=== PATIENT | male | born 1945 | race Caucasian/White ===

== ENCOUNTER 2016-11-06 09:22 | Observation (INO) | payer MEDICARE, OTHER ==
[~2016-11-06] VITALS: Ht 172.7 cm; Wt 81.0 kg
[~2016-11-06 09:22] MED LIST: ASPI-973 PO; CALC-1034 PO; CHOL100043 PO; PRAV40TA PO; UBID30CA12 PO; VIT1CAPS8 PO; ZYL100 PO
[2016-11-06 09:31] VITALS: BP 175/82; PULSE 68; RESP 15; O2SAT 98
--- NOTE | 2016-11-06 09:38 | ED.REPORT ---
HPI-Stroke / CVA Nov 06, 2016 ED Provider: Parish Holden MD 71 year old male presents to the ER accompanied by his due to concern for stroke. He states that he experienced an episode of difficulty with word- finding at 08:30 when he attempted to tell his what was happening in the TV show that he was watching at the time. Associated symptoms include right facial numbness, and right arm numbness. Symptoms are currently resolved. Recently he has been having recurrent headaches, and has been feeling fatigued. Patient denies chest pain, and shortness of breath. denies facial droop with symptoms. Nursing Notes Stated Complaint: WAS UNABLE TO TALK/NUMBNESS TO FACE/TINGLING HAND Chief Complaint: Neuro Symptoms/ Deficits Nursing Notes Reviewed: Yes Allergies: Coded Allergies: simvastatin (Verified Allergy, Mild, vertigo, 08/05/16) Scheduled Allopurinol (Allopurinol) 100 Mg Tablet 100 MG PO DAILY (Reported) Aspirin (Aspirin) 81 Mg Tablet 81 MG PO DAILY (Reported) Calcium Carbonate/Vitamin D3 (Calcium 600 + Vit D3 400 Tab) 600 Mg-400 Tablet 1 EACH PO DAILY (Reported) Cholecalciferol (Vitamin D3) (Vitamin D) 1,000 Unit Tablet 2,000 UNIT PO DAILY ( Reported) Pravastatin (Pravastatin) 40 Mg Tablet 40 MG PO DAILY (Reported) Vit C/Vit E/Lutein/Min/[place]-3 (Ocuvite Softgel) 1 Each Capsule 1 EACH PO BID ( Reported) Miscellaneous Medications Ubidecarenone (Coq-10) 30 Mg Capsule 30 MG PO (Reported) General Time Seen by Provider: 09:32 Chief Complaint Numbness, Unable to speak Face right, Arm right Hx Obtained From: Patient, Spouse Arrived By: Walk-in Time last known well 08:30 today Sudden in Onset?: Yes Progression Since Onset: Resolved Associated with: Reports: Headache Context Related History: Denies: Cerebrovascular accident Risk Factors NIH Stroke Scale Level of Consciousness: Alert and responsive (0) Ask Month & Age: Both questions right (0) Open/Close Eyes/Hand Art Professor: Performs both tasks (0) Horizontal EO Movements: None (0) Visual Rey: No visual loss (0) Facial Palsy: Normal symmetry (0) Right Arm Motor Drift (10s): No drift 10 sec (0) Left Arm Motor Drift (10s): No drift 10 sec (0) Right Leg Motor Drift (5s): No drift 5 sec (0) Left Leg Motor Drift (5s): No drift 5 sec (0) Limb Ataxia FNF/Heel-Cueva: No ataxia (0) Sensation (Arms/Legs/Face): No sensory loss (0) Language Aphasia: No aphasia, normal (0) Dysarthria: No dysarthria, normal (0) Extinction/Inattention: No exctinct/inattent (0) NIHSS Score: 0 Time NIHSS Performed: 09:47 Date NIHSS Performed: Nov 06, 2016 )( CVA Risk Stratification Age >60No Diabetes mellitus, No Hypertension, No Prior CVA/TIA, No Smoking Risk factors reviewed Past Medical History Past Medical History Reports: Cancer (Skin) Past Surgical History Reports: Tonsillectomy Smoking History Never Smoker Social History Alcohol Use: "Social" Other Social History: Good social support, Ambulatory Status Independent Review of Systems Constitutional: Denies: Chills, Fever Respiratory: Denies: Shortness of breath Cardiovascular: Denies: Chest pain Neurologic: Reports: Headache, Numbness (Right face, Right Arm), Unable to speak, Denies: Change LOC, Confusion, Dizziness, Focal weakness, Problem walking, Seizure, Shaking, Slurred speech, Syncope, Weakness Complete sys rev & neg: except as marked. Physical Exam Initial Vital Signs Vital Signs (First) Date Time Temp Pulse Resp B/P Pulse Ox O2 Delivery O2 Flow Rate FiO2 11/06/16 09:31 36.5 68 15 175/82 98 Room Air Initial VS: Reviewed Abdomen / GI: Soft, Non-tender, No guarding, No rebound, No distention Extremities: Vascular intact, Neuro intact, No swelling, No tenderness Skin: Warm, Dry, No cyanosis Psychiatric: Mood/affect normal, Behavior normal, Normal thought content General/Constitutional: Awake, Alert, No acute distress, Well developed, Well nourished Head / Eyes: Atraumatic, Normocephalic Neck: Supple, Full range of motion, No swelling, Non-tender, No carotid bruit Respiratory / Chest: Breath sounds NL, Breath sounds = bilat, No respiratory distress, No rales, No rhonchi, No wheezing Cardiovascular: Heart rate NL, Regular rhythm, Heart sounds NL, No gallop, No murmurs, No rubs, Peripheral circulation NL Neurologic: Oriented X3, Speech NL, No motor deficits, No sensory deficits, CN II - XII intact No difficulty word-finding. No facial droop. Sensation intact both sides of face. Right and Left with tongue. Strength 5/5 bilateral upper and lower extremities. See NIH Stroke Scale in the Risk section of this note. Interpretation & Diagnostics Lab Results Interpretation Result Diagram: 11/06/16 0930 11/06/16 0930 Test 11/06/16 09:30 White Blood Count 6.1th/mm3 (3.8-10.1) Red Blood Count 5.20mil/mm3 (4.40-5.80) Hemoglobin 15.2g/dL (13.8-17.2) Hematocrit 45.7% (41.0-50.0) Mean Corpuscular Volume 87.9fL (81-100) Mean Corpuscular Hemoglobin 29.2pg (27.0-35.0) Mean Corpuscular Hemoglobin Concent 33.3% (32.0-37.0) Red Cell Distribution Width 12.6% (12.3-15.4) Platelet Count 153bil/L (150-400) Neutrophils (%) (Auto) 62.9% (40-74) Lymphocytes (%) (Auto) 27.4% (14-46) Monocytes (%) (Auto) 5.7% (4-12) Eosinophils (%) (Auto) 3.4% (0-5) Basophils (%) (Auto) 0.3% (0-3) Prothrombin Time 10.9sec (8.1-12.5) Prothromb Time International Ratio 1.02ratio Activated Partial Thromboplast Time 29.7sec (22.8-33.0) Sodium Level 140mEq/L (134-144) Potassium Level 3.8mEq/L (3.5-5.2) Chloride Level 100mEq/L (97-108) Carbon Dioxide Level 27mmol/L (18-29) Blood Urea Nitrogen 13mg/dL (8-27) Creatinine 0.78mg/dL (0.76-1.27) Estimat Glomerular Filtration Rate 104mL/min (>59) Glucose Level 133mg/dL (60-99) Calcium Level 9.0mg/dL (8.5-10.1) Total Bilirubin 0.5mg/dL (0.0-1.2) Aspartate Amino Transf (AST/SGOT) 26U/L (0-50) Alanine Aminotransferase (ALT/SGPT) 18U/L (0-44) Alkaline Phosphatase 89U/L (25-160) Troponin T < 0.010ug/L (0.0-0.011) Total Protein 7.5g/dL (6.4-8.4) Albumin 4.3g/dL (3.4-5.0) Triglycerides Level 296mg/dL (0-149) Cholesterol Level 160mg/dL (100-199) LDL Cholesterol, Calculated 63.800mg/dL (0-99) VLDL Cholesterol 59.200mg/dL HDL Cholesterol 37mg/dL (>39) Cholesterol/HDL Ratio 4.32 (0.0-4.4) ECG Interpretation ECG Interpretation: Sinus rhythm, rate [address] segment changes No T wave abnormalities No prior ECG available for comparison Time: 10:24 Interpreted by: ED physician CT Head Interpretation IMPRESSION: Multiple bilateral hypodensities as detailed above which could be chronic however, technically age indeterminate in the absence of prior studies. These could represent age indeterminate lacunar infarcts/chronic microvascular ischemic disease. No acute intracranial process. Dictated by: Maximino Lucas M.D. on 11/06/2016 at 10:12 Approved by: Maximino Lucas M.D. on 11/06/2016 at 10:17 Study: Head CT no contrast Interpretation / Wet Read by: Interpret - Radiologist Re-Eval/Medical Decision Med Decision/Clinical Course In summary, the patient is a 70-year-old male presents to the emergency department with one resolved episode of word finding difficulty, inability to form sentences and right arm/face numbness/tingling. Daily emergency department symptoms have completely resolved and full head to toe neurologic examination is completely nonfocal. The patient is afebrile with stable vital signs and in no apparent distress/ speaking fluently. EKG was obtained and interpreted myself as documented above. CT scan of the head was obtained as below: Multiple bilateral hypodensities as detailed above which could be chronic however, technically age indeterminate in the absence of prior studies. These could represent age indeterminate lacunar infarcts/chronic microvascular ischemic disease.= No acute intracranial process. Laboratory studies notable as below: CBC normal Chemistry normal Troponin negative Overall presentation concerning for transient ischemic attack. At this time, no evidence of acute intracranial hemorrhage or mass lesion. Patient afebrile without any findings consistent with meningitis/encephalitis. No seizure-like activity here in the emergency department and reassuring neurologic assessment. Patient discussed with admitting hospitalist and he will be admitted for further workup including MRI, carotid imaging and echocardiogram for risk stratification purposes. Patient transferred in stable condition. Re-Evaluation/Progress : Time of Eval: 09:48 Re-Evaluation/Progress Note: Discussed physical examination findings and need for admission. Updated patient and on the plan of care. Consultation : Referral / Consult Name: Vipin Olvera MD Consulted With: Hospitalist Call Returned at: 10:25 Weblogic Administrator: Agrees with eval, Agrees with plan, Accepts admit Counseled Regarding: Diagnosis, Lab results, Need for admission Patient Discharge & Departure Impression: Primary Impression: TIA (transient ischemic attack) Transient cerebral ischemia type: unspecified Qualified Code: G45.9 - Transient cerebral ischemic attack, unspecified Additional Impressions: Numbness and tingling of right arm Numbness and tingling of right face Word finding difficulty Disposition: ADMITTED TO HOSPITAL Discharge Condition All VS Reviewed: Yes Condition: Stable Referrals: Lino Arango MD (PCP) Josselyn Attestation Portions of this note were transcribed by Bahman Tsai. I, Dr. Holden, personally performed the history, physical exam and medical decision-making; I reviewed and confirmed the accuracy of the information in the transcribed note. Signed by: Josselyn Botello, 11/06/2016 and 12:37 copies to: Lino Arango MD, Beck O MD Nov 06, 2016 09:38 BAHMAN TSAI Nov 06, 2016 09:52
[2016-11-06 10:14] VITALS: BP 150/76; PULSE 67; RESP 15; O2SAT 98
--- NOTE | 2016-11-06 10:17 | DRSVH ---
PROCEDURE: CT BRAIN WITHOUT CONTRAST ([id number]) INDICATIONS: Stroke TECHNIQUE: Noncontrast 4.5 mm thick angled axial sections acquired from the foramen magnum to the vertex, with c oronal reformats. COMPARISON: None. FINDINGS: Image quality: Excellent. CSF spaces: Basal cisterns are patent. No extra-axial fluid collections. The ventricles are symmet ifeanyi in size and shape. Brain: No intracranial bleeds or masses. Subcentimeter hypodensities in the right frontal lobe imag e 22 are age indeterminate. There is also left parietal periventricular hypodensity image 21 also age indeterminate. There is cerebral volume loss for age, with resultant ventricular and sulcal prominence. There are p eriventricular and deep white matter chronic small vessel ischemic changes. There is intracranial in ternal carotid artery atherosclerosis. Skull and face: Calvarium and visualized facial bones appear intact, without suspicious lesions. Sinuses: Visualized sinuses and mastoids are clear. IMPRESSION: Multiple bilateral hypodensities as detailed above which could be chronic however, technically age in determinate in the absence of prior studies. These could represent age indeterminate lacunar infarcts /chronic microvascular ischemic disease. No acute intracranial process. Dictated by: Maximino Lucas M.D. on 11/06/2016 at 10:12 Approved by: Maximino Lucas M.D. on 11/06/2016 at 10:17
[2016-11-06] MEDS ORDERED: Sodium Chloride LOK Flush 10 mL Syringe IVFLUSH PRN ×2 (10:30)
[2016-11-06 10:31] LABS: BASOPHILS % (AUTO) 0.3 % (0-3); EOSINOPHILS % (AUTO) 3.4 % (0-5); MONOCYTES % (AUTO) 5.7 % (4-12); Mean Corpuscular Hemoglobin 29.2 pg (27.0-35.0); Mean Corpuscular Volume 87.9 fL (81-100); NEUTROPHILS % (AUTO) 62.9 % (40-74); Platelet Count 153 bil/L (150-400)
[2016-11-06 10:37] LABS: INR 1.02 ratio
[2016-11-06 10:57] LABS: TROPONIN T < 0.010 ug/L (0.0-0.011)
[2016-11-06 11:37] VITALS: BP 174/91; PULSE 67; O2SAT 98
--- NOTE | 2016-11-06 11:44 | NUR ---
Evaluation completed. Please go to "Notes" then click on "Assessments and Notes" (bottom left corner of screen). Then select appropriate discipline tab on top of screen.
[2016-11-06 11:50] VITALS: PULSE 61
[2016-11-06 11:59] LABS: APPEARANCE,URINE CLEAR (CLEAR,HAZY); COLOR,URINE YELLOW (YELLOW); OCCULT BLOOD,URINE NEGATIVE (NEGATIVE); UROBILINOGEN,URINE NORMAL (NORMAL)
[2016-11-06] MEDS ORDERED: LYSI1000 PO (12:47)
[2016-11-06] MEDS ORDERED: COLC0.6T52 PO (12:47)
--- NOTE | 2016-11-06 13:01 | PCM.HPMED ---
Subjective Date of Service Nov 06, 2016 Primary Provider: Admitting Physician: Vipin Olvera MD Primary Care Physician: Lino Arango MD Attending Physician: Vipin Olvera MD Chief Complaint: Stroke-like symptoms History of Present Illness: 71-year-old male, community dwelling, no significant medical problems except HLD , gout, taking aspirin for primary prevention, no prior history of CVA p/w acute onset of stroke like symptoms this AM pt stated that he was USOH until this morning, woke up and noticed mild headache 3/10, dull, which has been for past few weeks, then went to bathroom and to sleep again, woke up around 8:30am, pt was watching TV then walked toward his , tried to explained things he watched on TV, but couldn't speak out, also noticed numbness aroiund Rt lip and left cheek, right hand, blurry on both eyes, no blackout, no LOC, denied associated HE, dizziness, n, v, chest pain, palpitation, no similar prior episode in the past. Episode lasted about 15min, saw him after episode resolved, didn't notice any difference in his face, arms, legs. no seizure acitivity noticed. pt has active lifestyle, going to gym 5 times per week, has regular follow up with PCP recently seen four days, c/o neck pain, plan to get possible MRI. Of note, pt had a chemical fall after slipping, hit his head few weeks ago, didn't seek for medical help right away, since then noticed some neck soreness, mild HE, not acutely worsened. pt has FHx of stroke, his dad had first stroke>60yo, and multiple subsequent strokes and heart attack, otherwise no other FHx of CAD. ROS: no fever, chills, cough, sputum, sick contact, travel, In ED VS, 175/82, 68, 15, afebrile, 98% on RA, symptoms seemed resolved on exam , NIHSS0, CTH no acute findings, admitted to floor for TIA w/u Review of Systems: Pertinent positives as noted in history of present illness. All other systems were reviewed and are negative Allergies Coded Allergies: simvastatin (Verified Allergy, Mild, vertigo, 08/05/16) Home Medications Scheduled Allopurinol (Allopurinol) 100 Mg Tablet 100 MG PO DAILY (Reported) Aspirin (Aspirin) 81 Mg Tablet 81 MG PO DAILY (Reported) Calcium Carbonate/Vitamin D3 (Calcium 600 + Vit D3 400 Tab) 600 Mg-400 Tablet 1 EACH PO DAILY (Reported) Cholecalciferol (Vitamin D3) (Vitamin D) 1,000 Unit Tablet 2,000 UNIT PO DAILY ( Reported) Pravastatin (Pravastatin) 40 Mg Tablet 40 MG PO DAILY (Reported) Vit C/Vit E/Lutein/Min/[place]-3 (Ocuvite Softgel) 1 Each Capsule 1 EACH PO BID ( Reported) Miscellaneous Medications Ubidecarenone (Coq-10) 30 Mg Capsule 30 MG PO (Reported) PMH Past Medical History as described above history of present illness Past Surgical History: Tonsillectomy Smoking History: Never Smoker, occ etoh, lives with Ambulatory Status, independent, retired in oil industry Social History Hx Alcohol Use: Yes Hx Substance Use: No Smoking Status: Never Smoker Exam Vital Signs Vital Sign - Last Date Time Temp Pulse Resp B/P Pulse Ox O2 Delivery O2 Flow Rate FiO2 11/06/16 11:50 61 11/06/16 11:37 36.7 174/91 98 Room Air 11/06/16 10:14 15 Exam NAD, comfortably laying down on the bed no JVD, MMM, no LAD RRR, nl s1, s2 no mrg CTAB, no w,c S,ND,NT,normoactive BS+ warm, no edema, pulses 2/2 Neuro:speech coherent, fluent, AAOx3 gait steady PERRLA, EOMI, symmetric face, no uvulae tongue deviation, able shrug shoulders equally able rotate neck equally on both sides FTN, dysdiadochokinesia intact, romberg negative, no pronator drift motor 5/5 throughout, sensory intact to dull touch Lab and Diagnostics Result Diagram: 11/06/1630 11/06/16 0930 12-lead ECG EKG [id number], RBBB Assessment & Plan 71-year-old male, community dwelling, no significant medical problems except HLD , gout, taking aspirin for primary prevention, no prior history of CVA p/w acute onset of stroke like symptoms this AM, symptoms resolved prior to arrival. acute, active, Rt sided numbness, weakness, expressive aphasia possibly due to TIA, POA, initial NIHSS0, sx resolved, nonfocal neuro exam. LDL<70, a1c pending -will do TTE, MR stroke protocol -telemetry, -awaits a1c, -will give [id number], continue 81mg, continue pravastatin chronic, stable HLD, plan as above gout, continue allopurinol dispo: Patient is admitted under observation status with expectation that she will be discharged within 24-48 hours, pt can be d/silvio to home if remains stable by tomorrow AM DVT prophylaxis LMWH Diet: DASH Full code Time spent 35 minutes Vipin Olvera MD Nov 06, 2016 12:50
--- NOTE | 2016-11-06 13:28 | DRSVH ---
[facility] [address] [place] [address] Echocardiogram Report Name: ROSEMARY FREEMAN Ricci e: 11/06/2016 Height: 68 in Hospital Exam Location: [facility] Weight: 179 lb Gender: Male BSA: 1.9 m2 : 1945 Age: 71 yrs BP: 150/76 mmHg Reason For Study: TIA Ordering Physician: HOSPITALIST JAMAALerformed By: Vasquez Torres Referring Physician: DARWIN JETER Interpretation Summary 1) Borderline concentric left ventricular hypertrophy with normal size, wall motion, and systolic function (EF 65-70%). 2) Normal right ventricular size and function. 3) No significant valvular abnormalities. 4) Mildly enlarged ascending aorta (diameter 3.9cm). 5) Hypertension present during the study (BP 150/76). 6) No prior Echo available for comparison. Procedure: A two-dimensional transthoracic echocardiogram with color flow and Doppler was performed. The study quality was technically good. There is no prior echocardiogram noted for this patient. The patient was in normal sinus rhythm during the exam. Left Ventricle: The left ventricle is normal in size. Left ventricular wall thickness is borderline increased. The ejection fraction is estimated to be 65-70%. Left ventricular systolic function is normal. Left ventricular wall motion is normal. Diastolic function could not be accurately assessed due to contradictory data. Right Ventricle: The right ventricle is normal in size, thickness and function. Atria: The left atrium is mildly dilated. Right atrial size is normal. The interatrial septum is intact with no evidence for an atrial septal defect. Mitral Valve: The mitral valve leaflets appear mildly thickened, but open well. There is mild mitral regurgitation. Aortic Valve: The aortic valve is normal in structure and function. There is no aortic valve stenosis. No aortic regurgitation is present. Tricuspid Valve: The tricuspid valve is normal. Pulmonary artery pressures cannot be estimated because of the lack of a measurable TR jet velocity. Pulmonic Valve: The pulmonic valve leaflets are thin and pliable; valve motion is normal. There is mild pulmonic regurgitation. Great Vessels: The aortic root is normal size. The ascending aorta is mildly enlarged. The pulmonary artery is normal size. The IVC is of normal diameter and collapses greater than 50% with a sniff. This suggests a low right atrial pressure of 3 mm Hg. Pericardium/ Pleura There is no pericardial effusion. There is no pleural effusion. MMode/2D Measurements & Calculations LVIDd: 4.0 cm RA long axis LVOT diam: 2.1 cm LVIDs: 2.7 cm LA A2 area: 20.8 cm Ao root diam FS: 32.4 % LA A4 area: 20.2 cm RA area IVSd: 1.2 cm LA length (vol) asc Aorta Diam LVPWd: 1.0 cm : 16.6 cm LA vol: 69.9 ml RA vol Ao Arch Diam (Prox LA vol index : 52.1 ml Trans): 3.6 cm RA : 35.9 ml/m2 : 26.7 mm2 LV gaming. diameter/BSA LV sys. diameter/BSA RVD1 (basal) TAPSE: 2.2 cm (cm/m^2): 2.1 (cm/m^2): 1.4 Doppler Measurements & Calculations Ao V2 max: 140.5 cm/secMV E max abdlulahi MV E/A: 0.84 PA V2 max Ao max P.9 mmHg : 70.1 cm/sec Med Peak E' Abdullahi : 95.3 cm/sec Ao mean P.1 mmHg MV A max abdullahi PA mean PG LVOT Max Abdullahi : 82.9 cm/sec E/E' med: 16.2 : 2.3 mmHg : 94.3 cm/sec Lat Peak E' Abdullahi PATRICIA(I,D): 2.8 cm sev ratio: 0.83 E/E' lat: 8.5 E/e' average MV dec time: 0.26 sec Ao V2 mean LV V1 max PG PA V2 mean : 95.4 cm/sec : 75.1 cm/sec Ao V2 VTI: 28.4 cmLV V1 VTI: 23.5 cm PA pr(Accel) PATRICIA(V,D): 2.3 cm2 : 37.0 mmHg PATRICIA indexed to BSA (cm^2/m^2): 1.4 Reading Physician:01:27 PM
--- NOTE | 2016-11-06 13:33 | DRSVH ---
PROCEDURE: MRI STROKE PROTOCOL ([id number]) Pre- and post-contrast brain MRI, non-contrast brain MR angiogram, pre- and postcontrast neck MR debo ogram INDICATIONS: CONFUSION,TIA TECHNIQUE: Brain: Noncontrast axial T1 spin echo, axial T2 fast spin echo, sagittal and axial FLAIR, coronal T2 fast spin echo, axial gradient echo, axial diffusion and ADC through the brain. After the administr ation of contrast, axial 3D VIBE of the cranial vasculature and brain. Brain MRA: Non-contrast 3-D time of flight MR angiogram, with multiple tuaibkt-pudgqaufl-gytmsqffyo (MIP) reformats performed. Neck MRA: Axial and sagittal TruFISP through the neck. Coronal dynamic MR angiogram during administ ration of contrast in the arterial and venous phases, with 3-dimenstional qrxhsei-pdijsuimh-efhtxcjnp n (MIP) reformats constructed from subtraction images. COMPARISON: [facility], CT, CT BRAIN WO CON, 11/06/2016, 10:01. FINDINGS: Image quality: Excellent. BRAIN: CSF spaces: Ventricles are normal in size and shape. Basal cisterns are patent. No extra-axial flu id collections. Brain: No intracranial bleeds or mass effects. There is mild diffuse cerebral volume loss. There is a mild degree of patchy high FLAIR signal within the periventricular and subcortical white matter, a s well as the brett, consistent with small vessel ischemic disease. Palmer-white matter interface is nor mal. Diffusion weighted images show no acute ischemic insults. Brainstem appears normal. Normal in travascular flow voids are present. No abnormal intracranial enhancement. Skull and face: Calvarial marrow signal is normal. Orbits appear normal. Sinuses: Sinuses and mastoids are clear. BRAIN MR ANGIOGRAM: Anterior circulation: Intracranial internal carotid arteries are normal in size and enhancement. Th e flow within the paired anterior cerebral arteries is normal and symmetric. The flow within the mid dle cerebral arteries is normal and symmetric. The anterior communicating artery is seen. No stenos es, occlusions, or aneurysms. Posterior circulation: The visualized portions of the vertebral arteries demonstrate normal caliber, and join to form a normal appearing basilar artery. The flow within the posterior cerebral arteries is normal and symmetric. No stenoses, occlusions, or aneurysms. NECK MR ANGIOGRAM: Carotids: Great vessels demonstrate a conventional anatomy as they arise from the aortic arch. The origins of the common carotid arteries appear patent. The calibers and courses of both common caroti d arteries are normal. There is mild, roughly 30% origin stenosis involving the right internal caroti d artery, which is otherwise patent. Left internal carotid artery is widely patent. Posterior circulation: The origins of the vertebral arteries appear patent. More superior portions of both vertebral arteries demonstrate normal course and caliber, and join to form a normal appearing basilar artery. Miscellaneous: Subclavian arteries appear patent. Pre-contrast images through the neck show no soft tissue abnormalities. IMPRESSION: BRAIN MRI: 1. Mild volume loss in small vessel ischemic disease. 2. No acute process. No recent infarct. BRAIN MR ANGIOGRAM: Negative cerebral MR angiography NECK MR ANGIOGRAM: 1. Roughly 30% origin stenosis involving the right internal carotid artery. Left internal carotid art brian is patent. 2. Patent bilateral vertebral arteries. The estimate of stenosis included in the report of the imaging study was calculated using the NASCET method Dictated by: Radha Rincon M.D. on 11/06/2016 at 12:27 Approved by: Radha Rincon M.D. on 11/06/2016 at 12:32
--- NOTE | 2016-11-06 13:49 | NUR ---
ADMIT Patient received from the ED via a gurney. Transferred independently in bed. Gait is steady. Patient is alert and oriented X 4. Moves all extremities. BUE/BLE has equal strength. No facial drooping noted. Swallow eval was done and patient has been cleared for his diet. Echo and MRI done. Patient complained of a headache and rated it as 3/10. Headache is not new. Dr. Olvera is at the bedside at this time and assessing the patient. Denies nausea. No emesis noted. Patient is placed on tele. Oriented to room, call light and bathroom. (Pls. refer to admit grid for assessments).
--- NOTE | 2016-11-06 14:26 | PCM.DIMED ---
Discharge Instructions Date of Service Nov 06, 2016 Dates of Hospitalization Nov 06, 2016 at 10:24 Discharge Diagnosis Discharge Diagnosis TIA Diet Heart Healthy Activity No restrictions Patient Instructions You were hospitalized with stroke-like symptoms, however all of workups were not suggestive of stroke, still there is possibly of mini stroke called 'TIA'. Please return to the hospital or contact your doctor if similar symptoms recur with severe degree which could be signs of impending stroke. Please continue your healthy life style, continue to take, aspirin, cholesterol medication. Please check your blood pressure to make sure it's good range Follow-up plan please follow up with your doctor in 2-3weeks for follow up Follow-up Provider: Lino Arango MD Follow-up with PCP in: 2 weeks Vipin Olvera MD Nov 06, 2016 14:26
[2016-11-06 14:49] VITALS: BP 153/75; PULSE 70; RESP 16; O2SAT 99
--- NOTE | 2016-11-06 14:51 | PCM.DC.MED ---
Discharge Summary Date of Service Nov 06, 2016 Dates of Hospitalization Date of Hospital Admission Nov 06, 2016 at 10:24 Date of Discharge: Nov 06, 2016 Providers: Admitting Physician: Vipin Olvera MD Primary Care Physician: Lino Arango MD Attending Physician: Vipin Olvera MD Diagnosis at Time of Discharge Diagnosis at Time of Discharge TIA Procedures XRay, CTs & MRIs PROCEDURE: MRI STROKE PROTOCOL ([id number]) Pre- and post-contrast brain MRI, non-contrast brain MR angiogram, pre- and postcontrast neck MR angiogram INDICATIONS: CONFUSION,TIA TECHNIQUE: Brain: Noncontrast axial T1 spin echo, axial T2 fast spin echo, sagittal and axial FLAIR, coronal T2 fast spin echo, axial gradient echo, axial diffusion and ADC through the brain. After the administration of contrast, axial 3D VIBE of the cranial vasculature and brain. Brain MRA: Non-contrast 3-D time of flight MR angiogram, with multiple maximum- intensity-projection (MIP) reformats performed. Neck MRA: Axial and sagittal TruFISP through the neck. Coronal dynamic MR angiogram during administration of contrast in the arterial and venous phases, with 3-dimenstional cctkvcs-hborfkwsq-wxayqdlqba (MIP) reformats constructed from subtraction images. COMPARISON: [facility], CT, CT BRAIN WO CON, 11/06/2016, 10:01. FINDINGS: Image quality: Excellent. BRAIN: CSF spaces: Ventricles are normal in size and shape. Basal cisterns are patent. No extra-axial fluid collections. Brain: No intracranial bleeds or mass effects. There is mild diffuse cerebral volume loss. There is a mild degree of patchy high FLAIR signal within the periventricular and subcortical white matter, as well as the brett, consistent with small vessel ischemic disease. Palmer-white matter interface is normal. Diffusion weighted images show no acute ischemic insults. Brainstem appears normal. Normal intravascular flow voids are present. No abnormal intracranial enhancement. Skull and face: Calvarial marrow signal is normal. Orbits appear normal. Sinuses: Sinuses and mastoids are clear. BRAIN MR ANGIOGRAM: Anterior circulation: Intracranial internal carotid arteries are normal in size and enhancement. The flow within the paired anterior cerebral arteries is normal and symmetric. The flow within the middle cerebral arteries is normal and symmetric. The anterior communicating artery is seen. No stenoses, occlusions, or aneurysms. Posterior circulation: The visualized portions of the vertebral arteries demonstrate normal caliber, and join to form a normal appearing basilar artery. The flow within the posterior cerebral arteries is normal and symmetric. No stenoses, occlusions, or aneurysms. NECK MR ANGIOGRAM: Carotids: Great vessels demonstrate a conventional anatomy as they arise from the aortic arch. The origins of the common carotid arteries appear patent. The calibers and courses of both common carotid arteries are normal. There is mild, roughly 30% origin stenosis involving the right internal carotid artery, which is otherwise patent. Left internal carotid artery is widely patent. Posterior circulation: The origins of the vertebral arteries appear patent. More superior portions of both vertebral arteries demonstrate normal course and caliber, and join to form a normal appearing basilar artery. Miscellaneous: Subclavian arteries appear patent. Pre-contrast images through the neck show no soft tissue abnormalities. IMPRESSION: BRAIN MRI: 1. Mild volume loss in small vessel ischemic disease. 2. No acute process. No recent infarct. BRAIN MR ANGIOGRAM: Negative cerebral MR angiography NECK MR ANGIOGRAM: 1. Roughly 30% origin stenosis involving the right internal carotid artery. Left internal carotid artery is patent. 2. Patent bilateral vertebral arteries. The estimate of stenosis included in the report of the imaging study was calculated using the NASCET method Dictated by: Radha Rincon M.D. on 11/06/2016 at 12:27 Approved by: Radha Rincon M.D. on 11/06/2016 at 12:32 PROCEDURE: CT BRAIN WITHOUT CONTRAST ([id number]) INDICATIONS: Stroke TECHNIQUE: Noncontrast 4.5 mm thick angled axial sections acquired from the foramen magnum to the vertex, with coronal reformats. COMPARISON: None. FINDINGS: Image quality: Excellent. CSF spaces: Basal cisterns are patent. No extra-axial fluid collections. The ventricles are symmetric in size and shape. Brain: No intracranial bleeds or masses. Subcentimeter hypodensities in the right frontal lobe image 22 are age indeterminate. There is also left parietal periventricular hypodensity image 21 also age indeterminate. There is cerebral volume loss for age, with resultant ventricular and sulcal prominence. There are periventricular and deep white matter chronic small vessel ischemic changes. There is intracranial internal carotid artery atherosclerosis. Skull and face: Calvarium and visualized facial bones appear intact, without suspicious lesions. Sinuses: Visualized sinuses and mastoids are clear. IMPRESSION: Multiple bilateral hypodensities as detailed above which could be chronic however, technically age indeterminate in the absence of prior studies. These could represent age indeterminate lacunar infarcts/chronic microvascular ischemic disease. No acute intracranial process. Dictated by: Maximino Lucas M.D. on 11/06/2016 at 10:12 Approved by: Maximino Lucas M.D. on 11/06/2016 at 10:17 Other Diagnostics EKG RBBB, sinus70 Brief History H&P obtained by on 11/06 71-year-old male, community dwelling, no significant medical problems except HLD , gout, taking aspirin for primary prevention, no prior history of CVA p/w acute onset of stroke like symptoms this AM pt stated that he was USOH until this morning, woke up and noticed mild headache 3/10, dull, which has been for past few weeks, then went to bathroom and to sleep again, woke up around 8:30am, pt was watching TV then walked toward his , tried to explained things he watched on TV, but couldn't speak out, also noticed numbness aroiund Rt lip and left cheek, right hand, blurry on both eyes, no blackout, no LOC, denied associated HE, dizziness, n, v, chest pain, palpitation, no similar prior episode in the past. Episode lasted about 15min, saw him after episode resolved, didn't notice any difference in his face, arms, legs. no seizure acitivity noticed. pt has active lifestyle, going to gym 5 times per week, has regular follow up with PCP recently seen four days, c/o neck pain, plan to get possible MRI. Of note, pt had a chemical fall after slipping, hit his head few weeks ago, didn't seek for medical help right away, since then noticed some neck soreness, mild HE, not acutely worsened. pt has FHx of stroke, his dad had first stroke>60yo, and multiple subsequent strokes and heart attack, otherwise no other FHx of CAD. ROS: no fever, chills, cough, sputum, sick contact, travel, In ED VS, 175/82, 68, 15, afebrile, 98% on RA, symptoms seemed resolved on exam , NIHSS0, CTH no acute findings, admitted to floor for TIA w/u Hospital Course 71-year-old male, community dwelling, no significant medical problems except HLD , gout, taking aspirin for primary prevention, no prior history of CVA p/w acute onset of stroke like symptoms this AM, symptoms resolved prior to arrival. acute, active, Rt sided numbness, weakness, expressive aphasia possibly due to TIA, POA, initial NIHSS0, sx resolved, nonfocal neuro exam. LDL<70, a1c pending -will do TTE, MR stroke protocol -telemetry, -awaits a1c, -will give [id number], continue 81mg, continue pravastatin chronic, stable HLD, plan as above gout, continue allopurinol dispo: Patient is admitted under observation status with expectation that she will be discharged within 24-48 hours, pt can be d/silvio to home if remains stable by tomorrow AM DVT prophylaxis LMWH Diet: DASH Full code Exam Vital Signs (Last) Date Time Temp Pulse Resp B/P Pulse Ox O2 Delivery O2 Flow Rate FiO2 11/06/16 11:50 61 11/06/16 11:37 36.7 174/91 98 Room Air 11/06/16 10:14 15 Exam NAD, comfortably laying down on the bed no JVD, MMM, no LAD RRR, nl s1, s2 no mrg CTAB, no w,c S,ND,NT,normoactive BS+ warm, no edema, pulses 2/2 Neuro:speech coherent, fluent, AAOx3 gait steady PERRLA, EOMI, symmetric face, no uvulae tongue deviation, able shrug shoulders equally able rotate neck equally on both sides FTN, dysdiadochokinesia intact, romberg negative, no pronator drift motor 5/5 throughout, sensory intact to dull touch Test 11/06/16 09:30 11/06/16 10:30 White Blood Count 6.1th/mm3 (3.8-10.1) Red Blood Count 5.20mil/mm3 (4.40-5.80) Hemoglobin 15.2g/dL (13.8-17.2) Hematocrit 45.7% (41.0-50.0) Mean Corpuscular Volume 87.9fL (81-100) Mean Corpuscular Hemoglobin 29.2pg (27.0-35.0) Mean Corpuscular Hemoglobin Concent 33.3% (32.0-37.0) Red Cell Distribution Width 12.6% (12.3-15.4) Platelet Count 153bil/L (150-400) Neutrophils (%) (Auto) 62.9% (40-74) Lymphocytes (%) (Auto) 27.4% (14-46) Monocytes (%) (Auto) 5.7% (4-12) Eosinophils (%) (Auto) 3.4% (0-5) Basophils (%) (Auto) 0.3% (0-3) Prothrombin Time 10.9sec (8.1-12.5) Prothromb Time International Ratio 1.02ratio Activated Partial Thromboplast Time 29.7sec (22.8-33.0) Sodium Level 140mEq/L (134-144) Potassium Level 3.8mEq/L (3.5-5.2) Chloride Level 100mEq/L (97-108) Carbon Dioxide Level 27mmol/L (18-29) Blood Urea Nitrogen 13mg/dL (8-27) Creatinine 0.78mg/dL (0.76-1.27) Estimat Glomerular Filtration Rate 104mL/min (>59) Glucose Level 133mg/dL (60-99) Calcium Level 9.0mg/dL (8.5-10.1) Total Bilirubin 0.5mg/dL (0.0-1.2) Aspartate Amino Transf (AST/SGOT) 26U/L (0-50) Alanine Aminotransferase (ALT/SGPT) 18U/L (0-44) Alkaline Phosphatase 89U/L (25-160) Troponin T < 0.010ug/L (0.0-0.011) Total Protein 7.5g/dL (6.4-8.4) Albumin 4.3g/dL (3.4-5.0) Triglycerides Level 296mg/dL (0-149) Cholesterol Level 160mg/dL (100-199) LDL Cholesterol, Calculated 63.800mg/dL (0-99) VLDL Cholesterol 59.200mg/dL HDL Cholesterol 37mg/dL (>39) Cholesterol/HDL Ratio 4.32 (0.0-4.4) Hold Decker Top Tube Received (Received) Urine Color Yellow (YELLOW) Urine Appearance Clear (CLEAR,HAZY) Urine pH 7.0 (5.0-8.0) Urine Specific [place] 1.006 (1.003-1.035) Urine Protein Negativemg/dL (NEG,TRACE) Urine Glucose (UA) Negativemg/dL (NEGATIVE) Urine Ketones Negativemg/dL (NEGATIVE) Urine Occult Blood Negative (NEGATIVE) Urine Nitrite Negative (NEGATIVE) Urine Bilirubin Negative (NEGATIVE) Urine Urobilinogen Normalmg/dL (NORMAL) Urine Leukocyte Esterase Negative (NEGATIVE) Urine RBC 0-2/hpf (0-2) Urine WBC 0-5/hpf (0-5) Urine Epithelial Cells Few/hpf (NONE-MOD) Urine Crystals None seen (NONE SEEN) Urine Bacteria None/hpf (NONE-FEW) Urine Hyaline Casts None/lpf (NONE) Urine Granular Casts None seen (NONE SEEN) Urine Waxy Casts None seen (NONE SEEN) Urine Red Blood Cell Casts None seen (NONE SEEN) Urine White Blood Cell Casts None seen (NONE SEEN) Urine Mucus None seen (None Seen) Urine Trichomonas None seen (NONE SEEN) Urine Yeast None (NONE SEEN) Urinalysis Comment None Urine Culture Reflexed Not indicated Discharge Medications Discharge Medications Allopurinol (Allopurinol) 100 Mg Tablet 100 MG PO DAILY (Reported) Aspirin (Aspirin) 81 Mg Tablet 81 MG PO DAILY (Reported) Calcium Carbonate/Vitamin D3 (Calcium 600 + Vit D3 400 Tab) 600 Mg-400 Tablet 1 EACH PO DAILY (Reported) Cholecalciferol (Vitamin D3) (Vitamin D) 1,000 Unit Tablet 2,000 UNIT PO DAILY ( Reported) Lysine (Lysine) 1,000 Mg Tablet 1,000 MG PO DAILY (Reported) Pravastatin (Pravastatin) 40 Mg Tablet 40 MG PO DAILY (Reported) Ubidecarenone (Coq-10) 30 Mg Capsule 30 MG PO DAILY (Reported) Vit C/Vit E/Lutein/Min/[place]-3 (Ocuvite Softgel) 1 Each Capsule 1 EACH PO BID ( Reported) As needed Colchicine (Colcrys) 0.6 Mg Tablet 1.2 MG PO PRN PRN PRN GOUT (Reported) Followup Plan Disposition: home Discharge Diet: Heart Healthy Discharge Activity: No restrictions Patient Instructions You were hospitalized with stroke-like symptoms, however all of workups were not suggestive of stroke, still there is possibly of mini stroke called 'TIA'. Please return to the hospital or contact your doctor if similar symptoms recur frequently with severe degree which could be signs of impending stroke. Please continue your healthy life style, continue to take, aspirin, cholesterol medication. Follow-up Provider: Lino Arango MD Follow-up with PCP in: 2 weeks Time spent 65min Vipin Olvera MD Nov 06, 2016 14:43
--- NOTE | 2016-11-06 15:29 | NUR ---
KELSEY explained and signed. Copy of COLE and Medicare self administered medicine info provided.
--- NOTE | 2016-11-06 16:23 | NUR ---
DISCHARGE Patient denies pain. Tolerating liquids PO and his diet well. Denies nausea. No emesis noted. Denies SOB. Patient has been cleared by SPT and PT. Patient has been ambulating independently in the room. Gait is steady. Neuro is intact. Voiding without any problems. IV saline lock d/cd. Discharge instructions and care notes was given to the patient and he verbalized understanding. Stroke booklet and instructions were given to the patient. Discharged to home with his family and all his personal belonging. (Copy of D/C is in the chart).
[2016-11-06] MEDS ORDERED: VIT C PO SCH (20:30)
[2016-11-06] MEDS ORDERED: LUTEIN PO SCH (20:30)
[2016-11-06] MEDS ORDERED: VIT E PO SCH (20:30)
[2016-11-06] MEDS ORDERED: OMEGA PO SCH (20:30)
[2016-11-07] MEDS ORDERED: CALCIUM CARBONATE PO SCH (08:30)
[2016-11-07] MEDS ORDERED: Calcium Carbonate (Oyster Shell) 500 mg Tablet PO SCH (08:30)
[2016-11-07] MEDS ORDERED: [UNRECOGNIZED DRUG - OTHER] PO SCH (08:30)
[2016-11-07] MEDS ORDERED: Ascorbic Acid 500 mg Tablet PO SCH (08:30)
[2016-11-07] MEDS ORDERED: Omega-3 Fatty Acids 1,000 mg Capsule PO SCH (08:30)
[2016-11-07] MEDS ORDERED: VITAMIN D3 PO SCH (08:30)
== END 2016-11-06 16:05 | disposition home or self-care (01) ==
LOC: SED 09:22 → OSC 10:24 → INTOOBSV 10:24 → OSC 10:55
PROVIDERS: ADMIT Internal Medicine; ATTEND Internal Medicine
DX: G45.9 Transient cerebral ischemic attack, unspecified (principal); E78.5 Hyperlipidemia, unspecified; R51 Headache; Z79.82 Long term (current) use of aspirin
CPT/HCPCS: 36415; 70450; 70549; 70553; 80053; 80061; 81000; 82948; 83036; 84484; 85025; 85610; 85730; 92610; 93005; 97161; 99285; A9585; C8929; G0378; G8978; G8979; G8980